=== PATIENT | male | born 1960 | race Caucasian/White ===

== ENCOUNTER 2019-06-12 11:25 | Observation (INO) | payer MEDICAID ==
--- NOTE | 2019-06-12 12:06 | ED Physician Documentation ---
History of Present Illness - Stated complaint Stated Complaint: SOA - Chief complaint Chief Complaint: Resp - History obtained from History obtained from: Patient - Additonal information Additional information: Patient is a 59-year-old male presenting with several weeks to months of shortness of breath, productive cough and subjective fever. Patient reports that he has been diagnosed with pneumonia before and finished antibiotics. Patient also uses inhaler and nebulizer at home. Patient continues to smoke tobacco, as well as marijuana. Patient denies other chest discomfort besides with coughing. He denies significant nasal congestion, rhinorrhea, abdominal pain, nausea, vomiting, urinary changes, stool changes, leg swelling. No other improving or worsening factors noted. Patient later noted that he had previously been sober from alcohol for many years and started drinking again regularly over the past few weeks. Patient believes he may have been drinking about a sixpack of beer daily. Patient's last drink was earlier today. Review of Systems Constitutional: reports: Fever Cardiac: denies: Chest pain / pressure Respiratory: reports: Dyspnea, Cough GI: denies: Abdominal Pain, Nausea, Vomiting, Diarrhea : denies: Dysuria PD PAST MEDICAL HISTORY - Past Medical History Cardiovascular: None Respiratory: None Endocrine/Autoimmune: None GI: Cirrhosis : None HEENT: Chronic hearing loss Psych: Depression Musculoskeletal: None Derm: Other - Past Surgical History Past Surgical History: No - Present Medications Home Medications: Ambulatory Orders Medication Instructions Recorded Confirmed Albuterol Sulfate [Albuterol 2 puffs IH Q4HR PRN #1 hfa.aer.ad 12/07/14 Sulfate Hfa] cephALEXin [Keflex] 500 mg PO Q6H #28 capsule 12/07/14 - Allergies Allergies/Adverse Reactions: Allergies Allergy/AdvReac Type Severity Reaction Status Date / Time No Known Drug Allergies Allergy Verified 12/07/14 12:26 - Social History Does the pt smoke?: Yes Smoking Status: Current every day smoker Does the pt drink ETOH?: Yes - Immunizations Immunizations are current?: No Immunizations: TDAP current <10years - POLST Patient has POLST: No PD ED PE NORMAL - Vitals Vital signs reviewed: Yes - General General: Alert and oriented X 3, No acute distress, Well developed/nourished - HEENT HEENT: Atraumatic, Moist mucous membranes, Other (No palpable sinus pressure) - Neck Neck: Supple, no meningeal sign - Cardiac Cardiac: RRR, No murmur - Respiratory Respiratory: No respiratory distress. No: Clear bilaterally (Significant rhonchi without wheezing or crackles throughout. Poor air movement.) - Abdomen Abdomen: Normal bowel sounds, Soft, Non tender, Non distended - Derm Derm: Normal color, Warm and dry, No rash - Extremities Extremities: No deformity, No tenderness to palpate, No edema, No calf tenderness / cord - Neuro Neuro: Alert and oriented X 3, No motor deficit, No sensory deficit - Psych Psych: Normal mood, Normal affect Results - Vitals Vitals: Vital Signs - 24 hr 06/12/19 06/12/19 06/12/19 11:37 12:12 12:52 Temperature 36.6 C Heart Rate 112 H 91 98 Respiratory 22 15 24 Rate Blood Pressure 128/101 H 130/84 H 121/60 O2 Saturation 94 94 101 H 06/12/19 06/12/19 06/12/19 13:22 13:30 14:00 Temperature Heart Rate 87 92 88 Respiratory 20 24 20 Rate Blood Pressure 130/85 H 118/76 119/83 H O2 Saturation 95 98 98 Oxygen O2 Source [With Activity] Room air O2 Source [Without Activity] Room air O2 Source Nasal cannula - EKG (time done) 1204 Rate: Rate (enter#) (90) Rhythm: NSR Ischemia: Non specific changes 1240 Rate: Rate (enter#) (89) Rhythm: NSR - Labs Labs: Laboratory Tests 06/12/19 06/12/19 06/12/19 12:40 12:40 12:40 WBC 9.8 RBC 4.32 L Hgb 14.5 Hct 40.9 L MCV 94.7 H MCH 33.6 H MCHC 35.5 RDW 13.2 Plt Count 199 MPV 8.5 Neut # (Auto) 6.6 Lymph # (Auto) 2.1 Carroll # (Auto) 0.9 Eos # (Auto) 0.1 Baso # (Auto) 0.1 Absolute Nucleated RBC 0.00 Nucleated RBC % 0.0 PT 10.8 INR 1.0 APTT 33.7 H Sodium 123 L Potassium 4.1 Chloride 83 L Carbon Dioxide 25 Anion Gap 15.0 H BUN 6 Creatinine 0.4 L Estimated GFR (MDRD) 219 Glucose 87 Calcium 8.2 L Total Bilirubin 0.6 AST 52 H ALT 44 Alkaline Phosphatase 61 Troponin I High Sens B-Natriuretic Peptide Total Protein 7.1 Albumin 3.8 Globulin 3.3 Albumin/Globulin Ratio 1.2 Lipase 50 TSH Urine Color Urine Clarity Urine pH Ur Specific [place] Urine Protein Urine Glucose (UA) Urine Ketones Urine Occult Blood Urine Nitrite Urine Bilirubin Urine Urobilinogen Ur Leukocyte Esterase Ur Microscopic Review Urine Culture Comments Urine Opiates Screen Ur Oxycodone Screen Urine Methadone Screen Ur Propoxyphene Screen Ur Barbiturates Screen Ur Tricyclics Screen Ur Phencyclidine Scrn Ur Amphetamine Screen U Methamphetamines Scrn U Benzodiazepines Scrn Urine Cocaine Screen U Cannabinoids Screen Ethyl Alcohol 235.4 06/12/19 06/12/19 06/12/19 12:40 12:40 12:40 WBC RBC Hgb Hct MCV MCH MCHC RDW Plt Count MPV Neut # (Auto) Lymph # (Auto) Carroll # (Auto) Eos # (Auto) Baso # (Auto) Absolute Nucleated RBC Nucleated RBC % PT INR APTT Sodium Potassium Chloride Carbon Dioxide Anion Gap BUN Creatinine Estimated GFR (MDRD) Glucose Calcium Total Bilirubin AST ALT Alkaline Phosphatase Troponin I High Sens 16.9 B-Natriuretic Peptide 35 Total Protein Albumin Globulin Albumin/Globulin Ratio Lipase TSH 0.98 Urine Color Urine Clarity Urine pH Ur Specific [place] Urine Protein Urine Glucose (UA) Urine Ketones Urine Occult Blood Urine Nitrite Urine Bilirubin Urine Urobilinogen Ur Leukocyte Esterase Ur Microscopic Review Urine Culture Comments Urine Opiates Screen Ur Oxycodone Screen Urine Methadone Screen Ur Propoxyphene Screen Ur Barbiturates Screen Ur Tricyclics Screen Ur Phencyclidine Scrn Ur Amphetamine Screen U Methamphetamines Scrn U Benzodiazepines Scrn Urine Cocaine Screen U Cannabinoids Screen Ethyl Alcohol 06/12/19 13:00 WBC RBC Hgb Hct MCV MCH MCHC RDW Plt Count MPV Neut # (Auto) Lymph # (Auto) Carroll # (Auto) Eos # (Auto) Baso # (Auto) Absolute Nucleated RBC Nucleated RBC % PT INR APTT Sodium Potassium Chloride Carbon Dioxide Anion Gap BUN Creatinine Estimated GFR (MDRD) Glucose Calcium Total Bilirubin AST ALT Alkaline Phosphatase Troponin I High Sens B-Natriuretic Peptide Total Protein Albumin Globulin Albumin/Globulin Ratio Lipase TSH Urine Color YELLOW Urine Clarity CLEAR Urine pH 6.5 Ur Specific [place] <=1.005 Urine Protein NEGATIVE Urine Glucose (UA) NEGATIVE Urine Ketones NEGATIVE Urine Occult Blood TRACE-LYSE Urine Nitrite NEGATIVE Urine Bilirubin NEGATIVE Urine Urobilinogen 0.2 (NORMAL) Ur Leukocyte Esterase NEGATIVE Ur Microscopic Review NOT INDICATED Urine Culture Comments NOT INDICATED Urine Opiates Screen NEGATIVE Ur Oxycodone Screen NEGATIVE Urine Methadone Screen NEGATIVE Ur Propoxyphene Screen NEGATIVE Ur Barbiturates Screen NEGATIVE Ur Tricyclics Screen NEGATIVE Ur Phencyclidine Scrn NEGATIVE Ur Amphetamine Screen NEGATIVE U Methamphetamines Scrn NEGATIVE U Benzodiazepines Scrn NEGATIVE Urine Cocaine Screen NEGATIVE U Cannabinoids Screen POSITIVE H Ethyl Alcohol PD MEDICAL DECISION MAKING - ED course Complexity details: reviewed results, re-evaluated patient, considered differential, d/w patient, d/w business analyst consultant ED course: Patient presenting with recent pneumonia and persistent shortness of breath with subjective fever and productive cough concerning for recurrence of pneumonia. Patient also continues to use tobacco which could be contributing to underlying COPD or other chronic changes. Chest x-ray obtained which not find evidence of pneumonia but possible bronchitis and other inflammatory changes. Do not feel patient requires antibiotics at this time. Initially during ED stay, patient had elevated heart rate to nearly 200 which unfortunately was not able to be captured on EKG but pacer pads put in place and was going to give adenosine, but patient converted back to normal sinus rhythm and appropriate rate on his own. Repeat EKGs during the remainder of the ED stay were within normal limits. Do not find evidence of new ischemia or other significant abnormalities. Blood work including cultures, as well as urinalysis testing obtained. Cardiac enzym es within normal limits. No other signs of obvious infection or complication except for significant hyponatremia. At this time, feel it is best to admit patient for further treatment of hyponatremia and work-up. Discussed with patient who is amenable to this plan. Discussed with hospitalist, who is also amenable to admission. Departure - Departure Disposition: ED Place in Observation Clinical Impression: Hyponatremia
[2019-06-12] MEDS ORDERED: ASPIRIN CHEW 81 MG TABLET PO STA (12:25)
[2019-06-12] MEDS ORDERED: ADENOSINE 6 MG/2 ML VIAL IVP STA (12:33)
[2019-06-12 12:46] LABS: BASOPHILS # (AUTO) 0.1 10^3/uL (0.0-0.1); BASOPHILS % (AUTO) 0.6 %; EOSINOPHILS # (AUTO) 0.1 10^3/uL (0.0-0.7); EOSINOPHILS % (AUTO) 0.9 %; HGB - HEMOGLOBIN 14.5 g/dL (14.0-18.0); LYMPHOCYTES # (AUTO) 2.1 10^3/uL (1.5-3.5); LYMPHOCYTES % (AUTO) 21.2 %; MEAN CORPUSCULAR HEMOGLOBIN 33.6 pg (27.0-31.0); MEAN CORPUSCULAR HGB CONC 35.5 g/dL (32.0-36.0); MEAN CORPUSCULAR VOLUME 94.7 fL (80.0-94.0); MEAN PLATELET VOLUME 8.5 fL (7.4-11.4); MONOCYTES # (AUTO) 0.9 10^3/uL (0.0-1.0); MONOCYTES % (AUTO) 9.2 %; NEUTROPHILS # (AUTO) 6.6 10^3/uL (1.5-6.6); NEUTROPHILS % (AUTO) 67.6 %; PLT - PLATELET COUNT 199 10^3/uL (130-450); RED BLOOD COUNT 4.32 10^6/uL (4.70-6.10); RED CELL DISTRIBUTION WIDTH 13.2 % (12.0-15.0); WHITE BLOOD COUNT 9.8 x10^3/uL (4.8-10.8)
--- NOTE | 2019-06-12 12:54 | XRAY Report ---
Reason: cough Procedure Date: 06/12/2019 Accession Number: [id number] / [id number] Procedure: XR - Chest 2 View X-Ray CPT Code: 36505 FULL RESULT: EXAM: CHEST RADIOGRAPHY EXAM DATE: 06/12/2019 12:25 PM. CLINICAL HISTORY: Productive cough and shortness of breath x1 week. History of pneumonia. COMPARISON: 08/28/2014. TECHNIQUE: 2 views. FINDINGS: Lungs/Pleura: Resolution of right basilar airspace disease. There is bilateral peribronchial thickening more prominent centrally. No consolidation, distinct nodules, or pulmonary edema. No pneumothorax or pleural effusion. Mediastinum: Normal heart size. Mildly tortuous aorta. Other: Multiple chronic posterior left rib fracture deformities. No acute fracture evident. IMPRESSION: 1. Nonspecific airways thickening compatible with airways disease/bronchitis. No consolidation or heart failure. 2. Chronic left rib fracture deformities. RADIA
[2019-06-12 12:56] LABS: PT - PROTHROMBIN TIME 10.8 secs (9.9-12.6)
[2019-06-12 13:03] LABS: PARTIAL THROMBOPLASTIN TIME 33.7 secs (24.9-33.3)
[2019-06-12 13:10] LABS: MUDS CUTOFF CONCENTRATIONS CUTOFF CONC BELOW:
[2019-06-12 13:17] LABS: BILIRUBIN,URINE NEGATIVE (NEGATIVE); GLUCOSE, URINE (UA) NEGATIVE (NEGATIVE); KETONES,URINE (UA) NEGATIVE (NEGATIVE); LEUKOCYTE ESTERASE, URINE NEGATIVE (NEGATIVE); NITRITE,URINE NEGATIVE (NEGATIVE); OCCULT BLOOD,URINE TRACE-LYSE (NEGATIVE); PH,URINE 6.5 PH (5.0-7.5); PROTEIN,URINE NEGATIVE (NEGATIVE); UROBILINOGEN,URINE 0.2 (NORMAL) E.U./dL (NORMAL)
[2019-06-12 13:18] LABS: CLARITY,URINE CLEAR (CLEAR)
[2019-06-12 13:29] LABS: AMPHETAMINE SCREEN,URINE NEGATIVE (NEGATIVE); BENZODIAZEPINES SCREEN, URINE NEGATIVE (NEGATIVE); COCAINE SCREEN URINE NEGATIVE (NEGATIVE); METHADONE SCREEN, URINE NEGATIVE (NEGATIVE); METHAMPHETAMINES SCREEN, URINE NEGATIVE (NEGATIVE); OPIATE SCREEN, URINE NEGATIVE (NEGATIVE); OXYCODONE SCREEN, URINE NEGATIVE (NEGATIVE); PROPOXYPHENE SCREEN, URINE NEGATIVE (NEGATIVE); TRICYCLIC ANTIDEPRESSANT,URINE NEGATIVE (NEGATIVE)
[2019-06-12 13:53] LABS: BILIRUBIN,TOTAL 0.6 mg/dL (0.2-1.0); CALCIUM 8.2 mg/dL (8.5-10.3); CREATININE 0.4 mg/dL (0.6-1.2)
[2019-06-12 13:54] LABS: ALBUMIN 3.8 g/dL (3.2-5.5); ALBUMIN/GLOBULIN RATIO 1.2 (1.0-2.2); TOTAL PROTEIN 7.1 g/dL (6.7-8.2)
[2019-06-12] MEDS ORDERED: SODIUM CHLORIDE 0.9% 1,000 ML IV ONE (14:09)
[2019-06-12] MEDS ORDERED: SODIUM CHLORIDE FLUSH 0.9% 10 ML SYRINGE IVP PRN (14:33)
--- NOTE | 2019-06-12 14:46 | HISTORY & PHYSICAL EXAMINATION ---
Chief Complaint - Chief Complaint Chief Complaint: short of breath History of Present Illness - Admitted From Admitted From:: [facility] ED - History Obtained From Records Reviewed: ED , 2014 admit notes here History obtained from: patient, EMR - History of Present Illness HPI Comment/Other: 59 yo male who has no real PCP, but has been seen at the [facility] in past, and was here 10/08 with severe ETOH withdrawal and pneumonia presented with complaints of shortness of breath for weeks and subjective fever to ED today. He reports having seen a provider at [facility] ~ 2 mos ago, SOB, weak, tired; was told he had pneumonia and was treated with "4 days of pill" (thinks frank sounds familiar but unsure. says he did have a CXR. denies sputum productive of anything other than white phlegm, has difficulty expectorating. [place] briefly better but only for a few days. Just feels very short of breath "always". [id number] x ~ 40 yrs (40 pack years) and continues to smoke, and occasionally smokes pot. 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 He does have albuterol MDI, and nebulizer and feels better after neb at home which he has been using with increasing frequency. 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 NO associated NV, food intolerance, loose bowels, dysuria , frequency, no skin change/s lesions, no chest pain, palpitations, near syncope, edema. In the ED VS notable for 94-98 % RA sat (94 % on RA, and subsequently ED notes 98 % on 2L) , no hypotension (BP 130/84 in ed,), mildly elevated HR 87-98. CXR in ED compared with 08/2014 5 yrs ago noted "resolution of R basilar airspace disease" (from 5 years prior. Bilateral peribronchial thickening centrally, But NO consolidation, nodules, edema nor effusion; chronic left rib Fx deformities In ED no resp distress, RA saturation in mid 90's no leukcytosis, Doesnt eat much because he lives in a atrailer "too much trouble" He has long history of alcoholism, and was here for withdrawal in 2013. He had been sober for several years until the passt few weeks, when he lost a support system, and started drinking again. He reports ~ 1 6 pack / day In the ED labs notable for hyponatremia 123 History - Past Medical History Cardiovascular: reports: None Respiratory: reports: None, Other (outpatient pneumonia 04/2019 ) Neuro: reports: None Endocrine/Autoimmune: reports: None GI: reports: Cirrhosis (reported but no formal diagnosis of cirrhosis, ultrasound 2013 with no nodularity) : reports: None HEENT: reports: Chronic hearing loss Psych: reports: Depression, Other (Alcoholism, hx of withdrawal 2013) Musculoskeletal: reports: None Derm: reports: Other MRSA Hx?: No - Family & Social History Family History: Mother: (age 85), Alzheimer's Disease, Father: Family History Comment/Other: lives [facility] in [facility], single, has 4 brothers , he's in contact , healthy as far as he knows, He has been a slaughter for many years, 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 Has a daughter, not , From [place] originally Living arrangement: At home, Other ([facility]) Living Situation: Alone - Substance History Use: Uses substance without health or social issues: Tobacco (40 pack yrs, continues), Alcohol (had counseling for long time, but started drinking againre cently b/c alone, ~ 1 6pack/day) Use Issues: Other (reports he has had mild withdrawal in past, not recently) - POLST Patient has POLST: No Meds/Allgy - Home Medications Home Medications: Ambulatory Orders Medication Instructions Recorded Confirmed Albuterol Sulfate [Albuterol 2 puffs IH Q4HR PRN #1 hfa.aer.ad 12/07/14 Sulfate Hfa] cephALEXin [Keflex] 500 mg PO Q6H #28 capsule 12/07/14 - Allergies Allergies/Adverse Reactions: Allergies Allergy/AdvReac Type Severity Reaction Status Date / Time No Known Drug Allergies Allergy Verified 12/07/14 12:26 Review of Systems - Constitutional Constitutional: reports: Other (" I dont have much to lose" (re weight, ) Dyspneic at work). denies: Weight gain, Weight loss - Eyes Eyes: reports: Other (Head ache currently). denies: Vision loss, Dipolpia - Ears, Nose & Throat Ears, Nose & Throat: reports: Hearing loss. denies: Ear pain - Cardiovascular Cariovascular: reports: Lightheadedness, Other (no actual syncope, sometimes light headed). denies: Irregular heart rate, Palpitations, Chest pain, Edema - Respiratory Respiratory: reports: Other (As per HPI) - Gastrointestinal Gastrointestinal: reports: Poor appetite (Doesnt eat much "bc lives in trailer and its too much trouble".). denies: Abdominal pain, Abdominal distention, Constipation, Diarrhea, Nausea, Vomiting, Coffee grounds emesis - Genitourinary Genitourinary: denies: Dysuria, Frequency, Urgency - Musculoskeletal Musculoskeletal: denies: Muscle pain, Back pain - Integumentary Integumentary: denies: Rash - Neurological Neurological: reports: General weakness - Psychiatric Psychiatric: reports: Depression (is able to work 6 hrs / day, and does art as hobby) Exam - Vital Signs Reviewed Vital Signs: Yes Vital Signs: Vital Signs x48h Temp Pulse Resp BP Pulse Ox 06/12/19 14:00 88 20 119/83 H 98 06/12/19 13:30 92 24 118/76 98 06/12/19 13:22 87 20 130/85 H 95 06/12/19 12:52 98 24 121/60 101 H 06/12/19 12:12 91 15 130/84 H 94 06/12/19 11:37 36.6 C 112 H 22 128/101 H 94 - Physical Exam General Appearance: positive: Mild distress, Other (Tall thin older man, sitting up at bedside, somewhat tripoding, shallow resps; 98-99% on 2L, 95% on RA (so 02 discontinued), somewhat anant complexion) Eyes Bilateral: positive: Normal inspection, PERRL, EOMI Neck: positive: Nml inspection, No JVD. negative: Lymphadenopathy (R), Lymphadenopathy (L), Stiff neck Respiratory: positive: Other (Somewhat tripoding at bedside, RASao2 95%, Somewha t barrel chested, Very distant breath sounds w/ some faint wheezing, no rhonchi, occas cough productive only of clear phlegm before neb. no clubbing) Cardiovascular: positive: Regular rate & rhythm, Other (Very distant heart sounds, unable to comment on murmur) Abdomen: positive: Nml bowel sounds, No distention, Other (nontender, liver edge ~ 4 cm below CM, Abd soft, nondistended, NT, (but reports palpation makes him want to cough) Skin: positive: Warm, Dry, Other (somewhat anant appearance) Extremities: positive: Non-tender, Full ROM (trace ankle edema bilaterally) Neurologic/Psychiatric: positive: Oriented x3, CN's nml (2-12), Motor nml, Sensation nml, Mood/affect nml. negative: Weakness, Depressed mood/affect Conclusion/Plan - Problem List (1) Hyponatremia Conclusion/Plan: Awaiting urine Na to assist w/ eval (Head ache may be associated, no neuro deficits Unfortunately urine osmo is send out Orthostatics pending, Not hypotensive, Does NOT appear dry on exam May be beer potomania/tea and toast diet from his description which would not warrant IV NS Feed! 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 possible blebs ; will check Chest CT Will give trial dose of Lorazepam if helps w/ dyspnea Needs outpatient PFT's; suspect very advanced disease Check Echo; ? PHtn Attestation I do not anticipate stay greater than 96 hrs based on presentation (3) Tobacco abuse Conclusion/Plan: as above suspect possible advanced emphysematous COPD based on exam Recommended /advised sessation given the sequelae Nicoderm Patch here (4) Wide-complex tachycardia Conclusion/Plan: Per ED, WCT with rate ~ 200 noted ~ 8-10 minutes (per RN report), ED physician reported this was WCT , but did not note WCT in her ED note and evideently planned adenosine (which suggests SVT) Patient asymptomatic at that time Troponin neg, BNP neg in ED before this event, once #KG obtained, NSR, nonspecific elevateion ST 2,3,F, TWI only V1, Right axis, P's suggestive of LAE -Telemetry -K is in normal range -repeat troponin at 7pm --Echo (also getting echo for eval of ?PHtn and dyspnea eval) (5) Alcohol use disorder Conclusion/Plan: Had been sober for several years w/ support Drinkingagain several weeks (~ 6 beers / day) CIWA if needed, rec continue cessation Labs not suggestive of hepatic injury (6) Full code status Conclusion/Plan: discussed with patient (7) Venous thromboembolism (VTE) prophylaxis provided on arrival Conclusion/Plan: Daily lovenox in setting of COPD d/w'd patient - Lab Results Lab results reviewed: Yes Robert Bones: 06/12/19 12:40 06/12/19 19:01 - EKG Results EKG Interpreted Independently: Yes EKG Comparison: No prior EKG
[2019-06-12] MEDS ORDERED: IPRATROPIUM/ALBUTEROL 3 ML NEB INH PRN (16:31)
[2019-06-12] MEDS ORDERED: predniSONE 20 MG TABLET PO SCH (16:33)
[2019-06-12] MEDS ORDERED: IPRATROPIUM/ALBUTEROL 3 ML NEB INH ONE (16:49)
[2019-06-12] MEDS: SODIUM CHLORIDE FLUSH 0.9% 10 ML SYRINGE IVP SCH (17:09)
[2019-06-12] MEDS ORDERED: LORazepam 0.5 MG TABLET PO ONE (17:15)
[2019-06-12] MEDS ORDERED: ACETAMINOPHEN 500 MG TABLET PO PRN (17:40)
[2019-06-12] MEDS: NICOTINE 21 MG PATCH TOP SCH (17:50)
[2019-06-12 18:11] LABS: VBG BASE EXCESS 3.2 mmol/L (-2 - +2); VBG PH 7.467 (7.31-7.41); VBG PO2 43.8 mmHg (25-47)
[2019-06-12] MEDS: IPRATROPIUM/ALBUTEROL 3 ML NEB INH SCH (20:17)
--- NOTE | 2019-06-12 20:28 | CT Report ---
Reason: eval for ? blebs, evident COPD on CXR , very dyspn Procedure Date: 06/12/2019 Accession Number: [id number] / [id number] Procedure: CT - CHEST WO CPT Code: FULL RESULT: EXAM: CT CHEST EXAM DATE: 06/12/2019 05:39 PM. CLINICAL HISTORY: Evaluate for question of blebs, evident COPD on chest x-ray, very dyspneic. COMPARISONS: None. TECHNIQUE: Routine helical CT imaging was performed through the chest. IV contrast: None. Reconstructions: Coronal and sagittal. In accordance with CT protocol optimization, one or more of the following dose reduction techniques were utilized for this exam: automated exposure control, adjustment of mA and/or KV based on patient size, or use of iterative reconstructive technique. FINDINGS: Lungs/Pleura: Moderate bilateral upper lobe centrilobular emphysema. No significant subpleural blebs seen. Ill-defined nodular and surrounding groundglass airspace opacities with interstitial thickening seen in the posterior basal segments of the right lower lobe. No pleural effusion or pneumothorax. Posterior right calcified pleural plaque noted. Mediastinum: Normal heart size. No pericardial effusion. There is a 1 cm in short axis pretracheal lymph node with numerous additional smaller lymph nodes. Circumferential mural thickening of the distal esophagus is noted. Bones: No acute bony abnormality. Old left fourth through eighth rib fracture deformity seen. Visualized Abdomen: The liver demonstrates decreased attenuation. Other: None. IMPRESSION: 1. Nodular right lower lobe airspace opacities most likely secondary to acute infection. 2. Emphysema. No significant subpleural blebs visualized. 3. Right pleural calcifications suggesting remote asbestos exposure. 4. Circumferential mural thickening of the lower esophagus which may be inflammatory or secondary to neoplasm. Direct visualization is recommended. 5. Fatty liver. RADIA
[2019-06-12] MEDS ORDERED: ONDANSETRON ODT 4 MG TABLET TL PRN (20:35)
[2019-06-12] MEDS ORDERED: IBUPROFEN 400 MG TABLET PO PRN (20:45)
[2019-06-13] MEDS: ALBUTEROL NEB 2.5 MG/3 ML INH PRN ×2 (00:36→04:53)
[2019-06-13] MEDS: SODIUM CHLORIDE FLUSH 0.9% 10 ML SYRINGE IVP SCH ×2 (01:52→08:48)
[2019-06-13] MEDS: SIMETHICONE CHEW 80 MG TABLET PO SCH ×3 (02:14→13:03)
[2019-06-13 05:34] LABS: CALCIUM 8.6 mg/dL (8.5-10.3); CREATININE 0.6 mg/dL (0.6-1.2)
[2019-06-13] MEDS ORDERED: LORazepam 2 MG/ML VIAL IVP PRN (06:30)
--- NOTE | 2019-06-13 07:34 | XRAY Report ---
Reason: Abdominal pain w/ emesis. Procedure Date: 06/13/2019 Accession Number: [id number] / [id number] Procedure: XR - Abdomen Acute CPT Code: FULL RESULT: EXAM: ABDOMINAL SERIES AND PA CHEST EXAM DATE: 06/13/2019 07:00 AM. CLINICAL HISTORY: Abdominal pain w/ emesis. COMPARISON: CHEST 2 VIEW 06/12/2019 12:09 PM. TECHNIQUE: 2 views abdomen and 1 view chest. FINDINGS: CHEST: Lungs/Pleura: Mild right costophrenic angle blunting. No pneumothorax. Bronchial wall thickening is present. Patchy right suprahilar opacities are noted. Mediastinum: Stable. ABDOMEN: Bowel Gas Pattern: Within normal limits. No dilated loops or abnormal fluid levels. Free Air: None. Other: Multiple left-sided chronic rib fractures. IMPRESSION: 1. Nonobstructive bowel gas pattern. 2. Small right pleural effusion. 3. Bronchial wall thickening compatible with bronchitis or reactive airways disease. Patchy right suprahilar opacities could represent developing infiltrates. RADIA
[2019-06-13] MEDS ORDERED: predniSONE 20 MG TABLET PO SCH (08:00)
[2019-06-13] MEDS: NICOTINE 21 MG PATCH TOP SCH (08:47)
[2019-06-13] MEDS ORDERED: ENOXAPARIN 40 MG/0.4 ML SYRINGE SUBQ SCH (09:00)
[2019-06-13] MEDS ORDERED: POLYETHYLENE GLYCOL 3350 17 GM PACKET PO SCH (09:00)
[2019-06-13] MEDS ORDERED: NICOTINE 21 MG PATCH TOP SCH (09:00)
[2019-06-13 10:14] LABS: BASOPHILS % (AUTO) 0.4 %; EOSINOPHILS % (AUTO) 0.4 %; LYMPHOCYTES # (AUTO) 1.3 10^3/uL (1.5-3.5); LYMPHOCYTES % (AUTO) 18.8 %; MEAN CORPUSCULAR HEMOGLOBIN 33.9 pg (27.0-31.0); MEAN CORPUSCULAR HGB CONC 35.7 g/dL (32.0-36.0); MEAN PLATELET VOLUME 9.2 fL (7.4-11.4); NEUTROPHILS # (AUTO) 4.5 10^3/uL (1.5-6.6); NEUTROPHILS % (AUTO) 65.7 %; PLT - PLATELET COUNT 219 10^3/uL (130-450); RED BLOOD COUNT 4.42 10^6/uL (4.70-6.10); RED CELL DISTRIBUTION WIDTH 13.2 % (12.0-15.0); WHITE BLOOD COUNT 6.9 x10^3/uL (4.8-10.8)
[2019-06-13] MEDS: IPRATROPIUM/ALBUTEROL 3 ML NEB INH SCH ×2 (10:30→13:25)
--- NOTE | 2019-06-13 14:40 | Discharge Plan ---
Discharge Plan Problem Reviewed?: Yes Disposition: Home, Self Care Condition: Stable Prescriptions: Nicotine 21 mg Patch [Nicoderm] 1 patch TOP DAILY #14 patch predniSONE [Deltasone] 40 mg PO DAILYWM #10 tablet Tiotropium [place] [Spiriva] 1 puffs INH DAILY 30 Days #1 each Diet: Regular (Stop alcohol /beer)(given prior problems with alcohol, and the thickening of lower esophagus seen on CT and low sodium)) Activity Restrictions: No Restrictions Shower Restrictions: No Driving Restrictions: No Assistance Devices: Other (none) Weight Bearing: Full Weight Additional Instructions or Follow Up instructions: Likely emphysema/COPD (needs formal diagnosis with pulmonary function tests/ PFTs) You came to the hospital due to feeling of breathlessness/shortness of breath You had no fever, or elevated white count, no change in your sputum Chest X ray showed "hyperinflation, flattened diaphragms" (seen in emphysema) Your oxygen was in normal range A CT of the chest did show moderate both sided upper lobe emphysema. No blebs (large air pockets) 1-COPD with possible exacerbation from dust/wood working; you felt improved with nebulizer treatments, and prednisone (antiinflammatory) Continue nebulizer at home when needed Start Spiriva inhaled once daily (for maintenance of lung function, NOTE; not for acute shortness of breath Continue 5 more days of prednisone 40 mg once daily Outpatient pulmonary function tests PCP consider pulmonary rehab referral Stop smoking CT chest also showed some "ill defined nodular ground glass air space , in Right lower lobe. OUtpatient pulmonary referral from PCP recommened. You did not appear to clinically have a pneumonia, so antibiotis werent started, but this should be evalulated further. 2-Tobacco use - Prescription for nicoderm 3-Thickening of lower esophagus noted on CT scan of the chest. Alcohol and tobacco are risk factors for esophageal cancer OUtpatient Endoscopy is recommended to evaluate this Recommend cease tobacco and alcohol 4-Low sodium; incidentally found on labs 123 This improved overnight without Ivfluid; likely related to "beer potomania" (not having enough solids in diet with beer) Overnight sodium improved to 127, then 131 with no specific intervention other than feeding solids 5-Fast heart rate; noted in ED, however resolved before ED could get an EKG Monitored on telemetry overnight; This did not recur No Smoking: If you smoke, Please STOP! Call for help. Follow-up with: TYRELL WHITFIELD MD [Primary Care Provider] -
[2019-06-13 15:33] VITALS: BP 146/82
--- NOTE | 2019-06-14 15:32 | DISCHARGE SUMMARY ---
Discharge Summary Admit Date: 06/12/19 Discharge Date: 06/13/19 Discharging Provider: CECILIA Joyner Code Status: Attempt Resuscitation Condition at Discharge: Stable Discharge Disposition: 01 Home, Self Care - DIAGNOSES Admission Diagnoses: 1)Hyponatremia 2) Dyspnea 3) Tobacco abuse 4)Wide complex tachycardia 5) Alcohol use disorder Discharge Diagnoses with Status of Each Condition: 1)Hyponatremia likey beer potomania, improving with no specific intervention other than feeding 123 on admit 2) Dyspnea; No hypoxia, improved with treatment for suspected COPD exacerbation (see below) 3) Suspect advanced COPD/ upper lobe centrilobar emphysema on CT/ no bullae 4) COPD exacerbation suspected; improved with PO steroids, duonebs, added spiriva on discharge further outpatient follow up needed, PFTs, possible pulmonary rehab Right lower lobe ground glass infiltrate needs follow up; ; no fever, sputum, leukocytosis 3) Tobacco abuse; advised on cessation nicoderm 2 week supply on discharge 4)Wide complex tachycardia/ reported by ED in hand off to admit,(not documented as such but adenosine ordered suggesting SVT (not given because reverted to NSR in ED (per report) Monitored on tele overnight, No tachydysrthymia 5) Alcohol use disorder advised on cessation no withdrawal symptoms here 6) Lower esophageal thickening on CT scan/ with 1 cm mediastinal node (and surrounding smaller nodes Recommend outpatient EGD with biopsy - HPI History of Present Illness: 59 yo male who has no real PCP, but has been seen at the [facility] in past, presented with complaints of dyspnea/shortness of breath for weeks and subjective fever to ED today. He reports having seen a provider at [facility] ~ 2 mos ago, SOB, weak, tired; was told he had pneumonia and was treated with "4 days of pill" (thinks azithro sounds familiar but unsure. says he did have a CXR. denies sputum productive of anything other than white phlegm, has difficulty expectorating. [place] briefly better but only for a few days. Just feels very short of breath "always". [id number] x ~ 40 yrs (40 pack years) and continues to smoke, and occasionally smokes pot. 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 He had been sober for several years until the passt few weeks, when he lost a support system, and started drinking again. He reports ~ 1 6 pack / day He has never had PFT's, despite 40 pack year history. He does have albuterol MDI, and nebulizer and feels better after neb at home which he has been using with increasing frequency. 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 NO associated NV, food intolerance, loose bowels, dysuria , frequency, no skin change/s lesions, no chest pain, palpitations, near syncope, edema. In the ED VS notable for 94-98 % RA sat (94 % on RA, and subsequently ED notes 98 % on 2L) , no hypotension (BP 130/84 in ed,), mildly elevated HR 87-98. CXR in ED nonospecific airway thickening c/w airwy diseae/ bronchitis compared with 08/2014 5 yrs ago noted "resolution of R basilar airspace disease" (from 5 years prior. Bilateral peribronchial thickening centrally, But NO consolidation, nodules, edema nor effusion; chronic left rib Fx deformities Of note , not noted on CXR report, hyperinflated and flattened diaphragms In ED no resp distress, RA saturation in mid 90's no leukcytosis, Doesnt eat much because he lives in a a trailer "too much trouble" In the ED labs notable for hyponatremia 123 Additionally in the ED, "WCT" with rate in 200's reported, although no strip obtained, and adenosine ordered suggsting SVT (not given as it resolved spontaneously, ) Admitted to evaluate hyponatremia, and tachycardia as well as dyspnea - CONSULTS | PROCEDURES Consultations: none Procedures: CXR Chest CT AXR - HOSPITAL COURSE Hospital Course: 1. Dyspnea; most consistent with COPD exacerbation/ no hypoxia Needs formal diagonosis with PFTs of COPD but emphysematous findings on CT Symptomatically improved with PO prednisone and duonebs Will continue 40 mg po daily x 5 more days Has nebulizer at home (and hand held albuterol mdi) Rx for spiriva given Needs outpatient PFT's Consider referral for pulmonary rehab Consider pulmonary consultation for ill defined RLL ground glass air space disease on CT ; see detail below; no fever or leukocytosis, or productive cough Did not add Antibiotics Advised on tobacco cessation/ Nicoderm Rx for 14 days treatments, and prednison 2-Tobacco use - Prescription for nicoderm Advised on cessation 3-Thickening of lower esophagus noted on CT scan of the chest. Alcohol and tobacco are risk factors for esophageal cancer OUtpatient Endoscopy is recommended to evaluate this Recommend cease tobacco and alcohol 4 Hyponatremia; Na 124 most consistent with beer potomonia; Not volume deplete on exam (no urine osmo available in hospital (send out test) Although urine sodium elevated (39),Overnight sodium improved to 127, then 131 with no specific intervention other than feeding solids 5) Tachycardia WCT with rate ~ 200 reportedly noted in ED/ asymptomatic ED physician reported this was WCT , but did not note WCT in her ED note and evideently planned adenosine (which suggests SVT) Troponin neg, BNP neg in ED before this event, once EKG obtained, NSR, nonspecific elevateion ST 2,3,F, TWI only V1, Right axis, P's suggestive of LAE -K is in normal range Echo: normal LV size and function, no valve abnormality, normal RVSP Monitored on tele; no recurrent tachycardia; no formal documentation (on strip or ekg) of this reported tachycardia - ALLERGIES Allergies/Adverse Reactions: Allergies Allergy/AdvReac Type Severity Reaction Status Date / Time No Known Drug Allergies Allergy Verified 12/07/14 12:26 - MEDICATIONS Home Medications: Ambulatory Orders Medication Instructions Recorded Confirmed Albuterol 3 ml INH Q4HR PRN 06/13/19 06/13/19 Albuterol Sulfate [Albuterol 2 puffs IH Q4H PRN 06/13/19 06/13/19 Sulfate Hfa] Nicotine 21 mg Patch [Nicoderm] 1 patch TOP DAILY #14 patch 06/13/19 Tiotropium [place] [Spiriva] 1 puffs INH DAILY 30 Days #1 each 06/13/19 predniSONE [Deltasone] 40 mg PO DAILYWM #10 tablet 06/13/19 - PHYSICAL EXAM AT DISCHARGE General Appearance: positive: No acute distress, Alert, Other (looks much more comfortable than on admission, less coughing, no tripod positioning) Eyes Bilateral: positive: PERRL, EOMI, No scleral icterus Respiratory: positive: No respiratory distress. negative: Wheezes, Rhonchi (Breath sounds with better movement than on admission, no wheezing) Cardiovascular: positive: Regular rate & rhythm (Very distant heart sounds, cannot comment on any extrasounds, no murmur appreciable, not tachycardic) Peripheral Pulses: positive: 2+ Abdomen: positive: Nml bowel sounds, No distention (LLQ tenderness present earlier resolved after eating) Back: negative: CVA tenderness (R), CVA tenderness (L) Skin: positive: Warm, Dry, Other (mild plethora, (may be hernandez) Extremities: positive: Full ROM. negative: Pedal edema Neurologic/Psychiatric: positive: Oriented x3, Mood/affect nml - LABS Result Diagrams: 06/13/19 09:30 06/13/19 04:31 - DIAGNOSTIC IMAGING Diagnostic Imaging Results: Final report reviewed Diagnostic Imaging Results Comments: Chest X ray 06/12 Resolution of right basilar airspace disease (c/w 2013, No consolidation, nodules or pulmonary edema, no PTX or effusion CT chest: 06/12 Moderate bilateral upper lobe entrilobular emphysema; No significant subpleural blebs Ill defined nodular and surrounding ground glass airspace opacities w/ interstitial thickeningin postrior basal segments RLL. No effusion, No PTX; Posterior calcified pleural placque possibly representing remote asbestos exposure 1 cm pretrachael lymph node with additonal smaller lymphondes. Circumferential mural thickening of distal esophagus Fatty liver Acute Abdomen series 06/13; Nonobstructive bowel gas pattern, Patchy right hilar opacities, ? Pilar right pleural efffusion , Porsha right suprahilar opacities coudl represent developing infiltrates
== END 2019-06-13 16:03 | disposition home or self-care (01) ==
LOC: ED 11:25 → MS2 14:33
PROVIDERS: ADMIT Nurse Practitioner; ATTEND Nurse Practitioner
DX: E87.1 Hypo-osmolality and hyponatremia (principal); R00.0 Tachycardia, unspecified; R50.9 Fever, unspecified; R06.00 Dyspnea, unspecified; R91.8 Other nonspecific abnormal finding of lung field; F10.20 Alcohol dependence, uncomplicated; F17.210 Nicotine dependence, cigarettes, uncomplicated; Z72.89 Other problems related to lifestyle; Z57.2 Occupational exposure to dust; F32.9 Major depressive disorder, single episode, unspecified; K22.9 Disease of esophagus, unspecified; H91.90 Unspecified hearing loss, unspecified ear; Z87.01 Personal history of pneumonia (recurrent); Z79.51 Long term (current) use of inhaled steroids
CPT/HCPCS: 36415; 71046; 71250; 74022; 80048; 80053; 80306; 80320; 81003; 82803; 83690; 83880; 84295; 84300; 84443; 85025; 85610; 85730; 87070; 87077; 87181; 87205; 93005; 93308; 94640; 96361; 96372; 96374; 99284; 99285; A9270; G0378; J1650; J2060; J7512; Q0162; 81001; 84484; 87086

== ENCOUNTER 2019-09-06 09:09 | Emergency (ER) | payer MEDICAID ==
--- NOTE | 2019-09-06 11:19 | ED Physician Documentation ---
History of Present Illness - Stated complaint Stated Complaint: EAR PX/RASH - Chief complaint Chief Complaint: Neuro - Additonal information Additional information: This is a 59-year-old male with a history of COPD who presents with right ear d iscomfort, and intermittent vertigo, for 5 days. Patient states last Wednesday he began having some discomfort in his right ear, denies any fever or drainage. On Wednesday he began having vertigo, states that when he moves his head certain way he will feel that the world is spinning around him. This lasts for a few seconds. He has felt somewhat less stable on his feet from time to time as well. When he sits still his symptoms completely resolve. He has never had a history of vertigo in the past. He also notes he had a rash in his back for the last week, he thought this was acne at first, but it is quite itchy and is persistent. He denies any new medications, any new detergents or soaps or other new contact exposures.No weakness or numbness, no confusion or speech changes. Review of Systems Constitutional: denies: Fever Eyes: denies: Loss of vision Ears: reports: Ear pain, Tinnitus/ringing Cardiac: denies: Chest pain / pressure Respiratory: reports: Other (COPD) GI: denies: Abdominal Pain : denies: Dysuria Skin: reports: Rash Neurologic: denies: Generalized weakness PD PAST MEDICAL HISTORY - Past Medical History Cardiovascular: None Respiratory: None, COPD, Other Neuro: None Endocrine/Autoimmune: None GI: Cirrhosis : None HEENT: Chronic hearing loss Psych: Depression, Other Musculoskeletal: None Derm: Other - Past Surgical History Past Surgical History: No Ortho: Other HEENT: Cataracts - Present Medications Home Medications: Ambulatory Orders Medication Instructions Recorded Confirmed Albuterol 3 ml INH Q4HR PRN 06/13/19 06/13/19 Albuterol Sulfate [Albuterol 2 puffs IH Q4H PRN 06/13/19 06/13/19 Sulfate Hfa] Nicotine 21 mg Patch [Nicoderm] 1 patch TOP DAILY #14 patch 06/13/19 Tiotropium [place] [Spiriva] 1 puffs INH DAILY 30 Days #1 each 06/13/19 predniSONE [Deltasone] 40 mg PO DAILYWM #10 tablet 06/13/19 Hydrocortisone 1% Oint 28 gm TOP BID PRN #1 tube 09/06/19 [Hydrocortisone] Meclizine HCl 25 mg PO TID PRN #12 tab.chew 09/06/19 - Allergies Allergies/Adverse Reactions: Allergies Allergy/AdvReac Type Severity Reaction Status Date / Time No Known Drug Allergies Allergy Verified 09/06/19 09:17 - Social History Does the pt smoke?: Yes Smoking Status: Current every day smoker Does the pt drink ETOH?: Yes Does the pt have substance abuse?: Yes - Immunizations Immunizations are current?: No Immunizations: TDAP current <10years - POLST Patient has POLST: No PD ED PE NORMAL - Vitals Vital signs reviewed: Yes - General General: Alert and oriented X 3, No acute distress - HEENT HEENT: EOMI, Other (Bilateral TMs are flat and wilson, there is some mild injection in the right ear canal but no effusion or otitis externa.) - Neck Neck: Supple, no meningeal sign - Cardiac Cardiac: RRR, No murmur - Respiratory Respiratory: Other (Mild end expiratory wheeze bilaterally.) - Abdomen Abdomen: Soft, Non distended - Derm Derm: Other (Over the upper back there are densely scattered erythematous macules and very slightly raised papules that reach near confluence in the mid upper back. There are excoriations and small 1-2mm crusts scattered in areas where the patient has apparently scratched. 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 Ambulatory with a narrow based gait without assistance. No nystagmus on exam. Jason-hallpike produces breif dizziness but no nystagmus. No eye skew.) - Psych Psych: Normal mood, Normal affect Results - Vitals Vitals: Vital Signs - 24 hr 09/06/19 09/06/19 11:11 13:43 Temperature 36.4 C L Heart Rate 94 89 Respiratory 22 20 Rate Blood Pressure 143/112 H 140/102 H O2 Saturation 95 95 Oxygen O2 Source [With Activity] Room air O2 Source [Without Activity] Room air O2 Source Room air - Labs Labs: Laboratory Tests 10/16/19 10/16/19 12:03 12:03 WBC 6.9 RBC 4.43 L Hgb 15.0 Hct 43.5 MCV 98.2 H MCH 33.9 H MCHC 34.5 RDW 12.7 Plt Count 225 MPV 8.8 Neut # (Auto) 4.4 Lymph # (Auto) 1.5 [place] # (Auto) 0.7 Eos # (Auto) 0.2 Baso # (Auto) 0.1 Absolute Nucleated RBC 0.00 Nucleated RBC % 0.0 Sodium 129 L Potassium 4.5 Chloride 93 L Carbon Dioxide 26 Anion Gap 10.0 BUN 11 Creatinine 0.6 Estimated GFR (MDRD) 137 Glucose 100 Calcium 9.2 PD MEDICAL DECISION MAKING - ED course Complexity details: considered differential (BPPV, labyrinthitis, meniere's disease, stroke, TIA, cerumen impaction, middle ear infection) ED course: On exam patient has no weakness, numbness, cranial nerve deficits (other than reduced hearing in right ear), or dysmetria/ataxia. He can walk independently. He has vertigo triggered by quick head movements. No nystagmus noted. Hearing is very poor in the right ear, which he states is typically his "good ear." Labs show a hyponatremia near his past values and unlikely to be the cause of his intermittent vertigo. No chest pain or symptoms to suggest cardiac cause of dizziness, which is clearly vertigo and not light-headedness. Given his hearing change and vertigo, labyrinthitis is possible, however his vertigo is not continuous. His vertigo is positionally-triggered, BPPV is possible however his hearing loss is less consistent with this. Patient does complain of some gait instability as well, though he is able to ambulate without any assistance. He was given a dose of meclizine. Patient is feeling improved after the meclizine. I discussed that given his stroke risk factors, MRI would reasonable. Patient declined this at this time, states that given he is feeling improved with the medication he would like to wait. He will return to the emergency department if he has any new or worsening symptoms, or if his symptoms do not have continued improvement tomorrow. He understands the risk of missing a diagnosis such as stroke and that he may return to the ED at any time for re-evaluation. Regarding his rash, it appears to possibly be a contact dermatitis, he has no vesicles, pain, palm or sole or mucous membrane invovlement to suggest more nefarious cause such as HSV, SJS at this time. I recommended avoiding any possible triggers, using hydrocortisone cream, and close follow up with his PCP. I also discussed symptoms or features of the rash that would necessitate return to the ED. Patient also needs to follow up on his hyponatremia, which appears to be a chronic issue. Patient agreed and was discharged home. Departure - Departure Disposition: Home, Self Care Clinical Impression: Vertigo, Hyponatremia Condition: Good Instructions: ED Vertigo Unspecified Follow-Up: Idris Laboy MD [Physician No Access] - Your,PCP [Other] (As soon as possible) Prescriptions: Hydrocortisone 1% Oint [Hydrocortisone] 28 gm TOP BID PRN #1 tube PRN Reason: Itching Meclizine HCl 25 mg PO TID PRN #12 tab.chew PRN Reason: Vertigo Comments: You were seen today for dizziness/vertigo when you move your head, as well as a rash on your back. I think you may have labyrinthitis/Mnire's disease which causes ringing in your ear as well as vertigo, you can try meclizine for this. If you are having difficulty walking, weakness, confusion, slurred speech or any other symptoms, return to the emergency department. Please follow-up with a ear nose and throat doctor such as Dr. Laboy, whose information has been provided. Please also call your primary care provider to schedule an appointment as soon as possible. Discharge Date/Time: 09/06/19 13:44
[2019-09-06] MEDS ORDERED: MECLIZINE 12.5 MG TABLET PO STA (11:32)
[2019-09-06 12:09] LABS: BASOPHILS # (AUTO) 0.1 10^3/uL (0.0-0.1); BASOPHILS % (AUTO) 0.7 %; EOSINOPHILS # (AUTO) 0.2 10^3/uL (0.0-0.7); EOSINOPHILS % (AUTO) 2.3 %; LYMPHOCYTES # (AUTO) 1.5 10^3/uL (1.5-3.5); LYMPHOCYTES % (AUTO) 21.6 %; MEAN CORPUSCULAR HEMOGLOBIN 33.9 pg (27.0-31.0); MEAN CORPUSCULAR HGB CONC 34.5 g/dL (32.0-36.0); MEAN CORPUSCULAR VOLUME 98.2 fL (80.0-94.0); MEAN PLATELET VOLUME 8.8 fL (7.4-11.4); MONOCYTES # (AUTO) 0.7 10^3/uL (0.0-1.0); MONOCYTES % (AUTO) 10.6 %; NEUTROPHILS # (AUTO) 4.4 10^3/uL (1.5-6.6); NEUTROPHILS % (AUTO) 63.6 %; PLT - PLATELET COUNT 225 10^3/uL (130-450); RED BLOOD COUNT 4.43 10^6/uL (4.70-6.10); RED CELL DISTRIBUTION WIDTH 12.7 % (12.0-15.0); WHITE BLOOD COUNT 6.9 x10^3/uL (4.8-10.8)
[2019-09-06 12:19] LABS: CALCIUM 9.2 mg/dL (8.5-10.3); CREATININE 0.6 mg/dL (0.6-1.2)
[2019-09-06 13:44] VITALS: BP 140/102
== END 2019-09-06 13:44 | disposition home or self-care (01) ==
LOC: ED 09:09
DX: R42 Dizziness and giddiness (principal); E87.1 Hypo-osmolality and hyponatremia; R21 Rash and other nonspecific skin eruption; J44.9 Chronic obstructive pulmonary disease, unspecified; F17.200 Nicotine dependence, unspecified, uncomplicated
CPT/HCPCS: 36415; 80048; 85025; 99283; 99284; A9270